=== PATIENT | male | born 1985 | race Caucasian/White ===

== ENCOUNTER 2016-05-03 14:59 | Emergency (ER) | payer OTHER ==
[2016-05-03 15:04] VITALS: TEMP 97; BMI 29.8
--- NOTE | 2016-05-03 15:19 | PDOC ---
History of Present Illness - General Chief Complaint: Pain Stated Complaint: PAIN Time Seen by Provider: 05/03/16 15:18 History Source: Patient Exam Limitations: No Limitations - History of Present Illness Initial Comments: 05/03/16 17:48 Chief complaint: Testicular pain Patient is a 30-year-old male with no significant medical problems with 4 days of right testicular pain pt states he was at another hospital yesterday had an ultrasound, was diagnosed with inguinal hernia but continues to have pain. No fever or vomiting area patient states he took Motrin this morning. Denies dysuria or penile discharge or complaints GENERAL/CONSTITUTIONAL: No fever, weakness. dizziness HEAD, EYES, EARS, NOSE AND THROAT: No change in vision. No ear pain or discharge. No sore throat. CARDIOVASCULAR: No chest pain RESPIRATORY: No shortness of breath or cough GASTROINTESTINAL: No pain, nausea, vomiting, diarrhea or constipation GENITOURINARY: No dysuria, + right testicular MUSCULOSKELETAL: No neck or back pain SKIN: No rash NEUROLOGIC: No headache, vertigo, loss of consciousness, or loss of sensation. GENERAL: The patient is awake, alert, and fully oriented, in no acute distress. HEAD: Normal with no signs of trauma. EYES: Pupils equal, round and reactive to light, sclera anicteric, conjunctiva clear. ENT: pharynx: no erythema, no exudate, uvula midline NECK: supple CHEST: clear, nontender, rr ABD: soft, nontender left testicle normal exam. penis non circumcised. no discharge or erythema or swelling. right testicle enlarged, tender, erythemic EXTREMITIES: Normal range of motion, no edema. NEUROLOGICAL: Normal speech, normal gait. SKIN: Warm, Dry Past History - Past Medical History Allergies/Adverse Reactions: Allergies Allergy/AdvReac Type Severity Reaction Status Date / Time No Known Allergies Allergy Verified 05/03/16 15:04 Home Medications: Ambulatory Orders Levofloxacin [Levaquin] 500 mg PO DAILY #10 tablet 05/03/16 Other medical history: denies - Psycho/Social/Smoking Cessation Hx Suicidal Ideation: No Smoking History: Never smoked *Physical Exam - Vital Signs Last Vital Signs Temp Pulse Resp BP Pulse Ox 97 F L 110 H 20 138/96 99 05/03/16 15:01 05/03/16 15:01 05/03/16 15:01 05/03/16 15:01 05/03/16 15:01 Medical Decision Making - Medical Decision Making 05/03/16 17:56 Agent with swelling and pain to right testicle for 4 days, ultrasound shows epididymitis, will treat with Rocephin and a azithromycin and will explained to patient that he needs to follow-up urologist. *DC/Admit/Observation/Transfer Diagnosis at time of Disposition: Epididymitis - Discharge Dispostion Disposition: HOME Admit: No - Prescriptions Prescriptions: Levofloxacin [Levaquin] 500 mg PO DAILY #10 tablet - Patient Instructions Printed Discharge Instructions: DI for Epididymitis Additional Instructions: no sex until ok from doctor, probably 2 weeks you need to follow up with a doctor this week. [facility] at [phone] or [facility]. return to er if fever or getting sicker. wear supportive underwear take the levaquin 1 tab every day for 10 days. take motrin 600 mg every 6 hours for pain
[2016-05-03] MEDS ORDERED: OXYCODONE/APAP 5/325MG COMBO TABLET PO ONE (15:26)
[2016-05-03] MEDS ORDERED: OXYCODONE/APAP 5/325MG COMBO TABLET ONE (16:04)
[2016-05-03 16:21] LABS: URINE APPEARANCE CLEAR; URINE BILIRUBIN NEGATIVE (NEGATIVE); URINE BLOOD NEGATIVE (NEGATIVE); URINE COLOR YELLOW; URINE GLUCOSE (UA) NEGATIVE (NEGATIVE); URINE KETONE NEGATIVE (NEGATIVE); URINE NITRITE NEGATIVE (NEGATIVE); URINE PROTEIN NEGATIVE (NEGATIVE); URINE UROBILINOGEN 2.0 E.U/dl E.U./dl (0.2-1.0)
[2016-05-03 16:25] LABS: URINE LEUK ESTERASE 1+ (NEGATIVE)
[2016-05-03 16:26] LABS: URINE MUCUS RARE; URINE RBC <1 /hpf (0-3); URINE WBC 1 /hpf (3-5)
[2016-05-03] MEDS ORDERED: AZITHROMYCIN 1 GM PACKET PO ONE (17:53)
[2016-05-03] MEDS ORDERED: cefTRIAXone SODIUM 1 GM VIAL ONE (18:25)
[2016-05-03] MEDS ORDERED: AZITHROMYCIN 250 MG TABLET (FP) ONE (18:25)
[2016-05-03] MEDS ORDERED: LIDOCAINE HCL 2% (20ML MULTI-DOSE VIAL) NR ONE (18:25)
[2016-05-03 18:34] VITALS: BP 120/81; PULSE 78
== END 2016-05-03 18:34 | disposition home or self-care (01) ==
LOC: JER 14:59
DX: N45.1 Epididymitis (principal)
CPT/HCPCS: 36415; 76870-TC; 81003; 81015; 87491; 87591; 99283-25

== ENCOUNTER 2016-11-22 16:47 | Emergency (ER) | payer OTHER ==
[2016-11-22 16:51] VITALS: BMI 28.0
--- NOTE | 2016-11-22 17:27 | PDOC ---
Attending Attestation - Resident Resident Name: Darek Castaneda - ED Attending Attestation I have performed the following: I have examined & evaluated the patient, The case was reviewed & discussed with the resident, I agree w/resident's findings & plan, Exceptions are as noted - HPI HPI: 11/22/16 17:25 Epigastric Burning after eating - Physicial Exam PE: 11/22/16 17:26 3 days... VSS NAD Pain present during exam at level 3 - Medical Decision Making 11/22/16 17:[address] Darek Castaneda's assessment and plan
[2016-11-22] MEDS ORDERED: MAG HYDROX/AL HYDROX/SIMETH 30 ML UNIT-DOSE CUP PO ONE (17:32)
[2016-11-22] MEDS ORDERED: FAMOTIDINE 20 MG/50 ML IVPB 50 ML IVPB ONE ×3 (17:32→18:06)
[2016-11-22] MEDS ORDERED: LIDOCAINE VISCOUS 2% ORAL/TOP 20 ML UNIT-DOSE CUP MM ONE (17:32)
--- NOTE | 2016-11-22 17:35 | PDOC ---
History of Present Illness - General Chief Complaint: Pain Stated Complaint: Abdominal pain,nausea Time Seen by Provider: 11/22/16 17:24 - History of Present Illness Initial Comments: 31 year old male presenting with three days of sudden onset abdominal pain with post-prandial worsening. Denies history of GERD. Denies any recent drinking history or extraordinary food ingestion. Does admit to some nausea but that hasn't decreased his food intake, even despite his post parandial pain exacerbation. Denies fevers, chills, vomiting, chest pain, palpitations, or any other sick symptoms. 11/22/16 17:34 Past History - Past Medical History Allergies/Adverse Reactions: Allergies Allergy/AdvReac Type Severity Reaction Status Date / Time No Known Allergies Allergy Verified 11/22/16 19:11 Home Medications: Ambulatory Orders Mag Hydrox/Al Hydrox/Simeth [Mylanta Suspension -] 30 ml PO Q6H PRN #1 bottle Other medical history: denies - Suicide/Smoking/Psychosocial Hx Smoking History: Never smoked Information on smoking cessation initiated: No Hx Alcohol Use: Yes (occasional) Drug/Substance Use Hx: No Substance Use Type: None Review of Systems - Review of Systems Constitutional: No: Chills, Diaphoresis, Fever HEENTM: No: Blurred Vision Respiratory: No: Cough, Shortness of Breath Cardiac (ROS): No: Chest Pain, Irregular Heart Rate ABD/GI: Yes: Nausea. No: Diarrhea, Vomiting : No: Dysuria, Discharge Integumentary: No: Bruising, Change in Color, Erythema, Lesions Neurological: No: Headache *Physical Exam - Vital Signs Last Vital Signs Temp Pulse Resp BP Pulse Ox 98.5 F 105 H 19 153/98 100 11/22/16 16:48 11/22/16 16:48 11/22/16 16:48 11/22/16 16:48 11/22/16 16:48 - Physical Exam General Appearance: Yes: Nourished, Appropriately Dressed. No: Apparent Distress HEENT: positive: EOMI, LUCILLE, Normal Voice, Other (Moist mucous membranes) Neck: positive: Trachea midline, Normal Thyroid, Supple. negative: Tender, Rigid Respiratory/Chest: positive: Lungs Clear, Normal Breath Sounds. negative: Chest Tender, Respiratory Distress Cardiovascular: positive: Regular Rhythm, Regular Rate, S1, S2. negative: Edema , JVD, Murmur Gastrointestinal/Abdominal: positive: Normal Bowel Sounds, Tender (Some slight left upper quadrant tenderness to palpation), Flat, Soft Musculoskeletal: positive: Normal Inspection Extremity: positive: Normal Inspection, Normal Range of Motion Integumentary: positive: Normal Color, Dry, Warm Neurologic: positive: Fully Oriented, Alert, Normal Mood/Affect, Normal Response ED Treatment Course - LABORATORY CBC & Chemistry Diagram: 11/22/16 17:48 11/22/16 17:48 Medical Decision Making - Medical Decision Making 31 year old male with nonspecific diffuse abdominal burning worse after eating that co-presents with some nausea. Pain remitted after Maalox, famotidine, and viscous lidocaine. Most likely GERD as labs are pickens-normal as well. Will recheck vitals as he was slightly Tachy and hypertensive on arrival. 11/22/16 19:21 VSS and patient OK with discharge with Maalox. 11/22/16 19:27 *DC/Admit/Observation/Transfer Diagnosis at time of Disposition: GERD (gastroesophageal reflux disease) - Discharge Dispostion Admit: No - Prescriptions Prescriptions: Mag Hydrox/Al Hydrox/Simeth [Mylanta Suspension -] 30 ml PO Q6H PRN #1 bottle PRN Reason: Dyspepsia - Referrals Referrals: Lesley Hernandez MD [Primary Care Provider] - - Patient Instructions Printed Discharge Instructions: DI for Gastroesophageal Reflux Disease (GERD) Print Language: MONEGASQUE
[2016-11-22 18:01] LABS: BASOPHIL 0.6 % (0-2.0); EOSINOPHIL 1.3 % (0-4.5); MCH 32.3 pg (25.7-33.7); MCHC 35.2 g/dl (32.0-35.9); MEAN CELL VOLUME 91.6 fl (80-96); MEAN PLT VOLUME 8.9 fl (7.5-11.1); NEUTROPHILS 64.3 % (42.8-82.8); PLATELET COUNT 195 K/MM3 (134-434); RDW 13.5 % (11.9-15.9); WHITE BLOOD COUNT 10.1 K/mm3 (4.0-10.0)
[2016-11-22] MEDS ORDERED: LIDOCAINE VISCOUS 2% ORAL/TOP 20 ML UNIT-DOSE CUP ONE (18:02)
[2016-11-22] MEDS ORDERED: MAG HYDROX/AL HYDROX/SIMETH 30 ML UNIT-DOSE CUP ONE (18:03)
[2016-11-22 18:19] LABS: ALBUMIN 3.7 g/dl (3.4-5.0); ALK PHOS 73 U/L (45-117); ANION GAP 6 (8-16); BILIRUBIN,TOTAL 0.5 mg/dL (0.2-1.0); CALCIUM 8.4 mg/dL (8.5-10.1); CO2 28 mmol/L (21-32); CREATININE 0.8 mg/dL (0.7-1.3); GLUCOSE,RANDOM 96 mg/dL (74-106); SGPT/ALT 32 U/L (12-78); TOT PROT 6.8 g/dl (6.4-8.2)
[2016-11-22 18:21] LABS: MAGNESIUM 2.2 mg/dL (1.8-2.4)
[2016-11-22 18:22] LABS: SGOT/AST 23 U/L (15-37)
[2016-11-22 19:29] VITALS: BP 133/79; PULSE 80; TEMP 98.4
--- NOTE | 2016-11-23 11:09 | EKG ---
Test Reason : Blood Pressure : / mmHG Vent. Rate : 093 BPM Atrial Rate : 093 BPM P-R Int : 168 ms QRS Dur : 096 ms QT Int : 334 ms P-R-T Axes : 047 027 016 degrees QTc Int : 415 ms NORMAL SINUS RHYTHM NORMAL ECG NO PREVIOUS ECGS AVAILABLE Confirmed by TIMI OLMOS MD ([id number]) on 11/23/2016 11:09:11 AM Referred By: Confirmed By:TIMI OLMOS MD
== END 2016-11-22 19:56 | disposition home or self-care (01) ==
LOC: JER 16:47
PROC: 3E033GC Introduction of Other Therapeutic Substance into Peripheral Vein, Percutaneous Approach (ICD-10-PCS; principal; 2016-11-22)
DX: K21.9 Gastro-esophageal reflux disease without esophagitis (principal)
CPT/HCPCS: 36415; 80053; 83690; 83735; 85025; 93005; 93010; 96365; 99283-25

== ENCOUNTER 2018-03-12 17:24 | Emergency (ER) | payer OTHER ==
[2018-03-12 17:50] VITALS: BP 130/82; PULSE 125; BMI 32.0
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
[2018-03-12] MEDS ORDERED: NAPROXEN 500 MG TABLET (FP) PO ONE (19:40)
[2018-03-12] MEDS ORDERED: NAPROXEN 500 MG TABLET (FP) ONE (19:44)
== END 2018-03-12 20:51 | disposition home or self-care (01) ==
LOC: JERFT 17:24
DX: Z04.1 Encounter for examination and observation following transport accident (principal); V43.52XA Car driver injured in collision with other type car in traffic accident, initial encounter; W22.11XA Striking against or struck by driver side automobile airbag, initial encounter; Y92.412 Parkway as the place of occurrence of the external cause; Y93.89 Activity, other specified; Y99.8 Other external cause status
CPT/HCPCS: 99281-25